=== PATIENT | female | born 1935 | race Caucasian/White ===

== ENCOUNTER 2017-04-15 16:34 | Emergency (ER) | payer MEDICARE, MEDICAID ==
[~2017-04-15] VITALS: Ht 167.6 cm; Wt 72.6 kg
--- NOTE | 2017-04-15 16:34 | NUR ---
Patient BIBA to bed 11 at this time.
[2017-04-15 16:38] VITALS: BP 190/98
[2017-04-15] MEDS ORDERED: ONDANSETRON 4 MG/2 ML VIAL IVP ONE (16:45)
[2017-04-15] MEDS ORDERED: NACL 0.9% 1,000 ML IV ONE (16:45)
[2017-04-15] MEDS ORDERED: MORPHINE SULFATE 4 MG/ML SYR IVP ONE (16:45)
--- NOTE | 2017-04-15 16:55 | NUR ---
81F BIBA WITH C/O 02/19 "SHARP" NON RADIATING CONSTANT RIGHT HIP PAIN S/P MECHANICAL FALL FROM 2 STEP LADDER; PT STS SHE WAS STEPPING DOWN AND MISS A STEP AND FALL UNTO RIGHT HIP; PT DENIES ANY LOC OR VOMITTING S/P FALL; SHORTENING AND ROTATION NOTED TO RIGHT LEG; CMS INTACT TO BL LEGS; PT IS AOX4, RR ARE EVEN AND UNLABORED; PT DENIES ANY SOB OR CP; ER MD AWARE OF PT STATUS; NAD; AWAITING LAB/RADIOLOGY RESULTS. WILL CONTINUE TO MONITOR.
--- NOTE | 2017-04-15 17:07 | NUR ---
XRAY BY BEDSIDE
[2017-04-15 17:30] LABS: BASOPHILS # (AUTO) 0.2 K/uL (0.00-0.22); BASOPHILS % (AUTO) 1.4 % (0.0-2.0); EOSINOPHILS # (AUTO) 0.1 K/uL (0-0.4); EOSINOPHILS % (AUTO) 0.6 % (0.0-4.0); HEMATOCRIT 42.2 % (36-48); HEMOGLOBIN 13.6 g/dL (12.0-16.0); LYMPHOCYTES # (AUTO) 0.9 K/uL (2.5-16.5); LYMPHOCYTES % (AUTO) 8.1 % (20.5-51.1); MEAN CORPUSCULAR HEMOGLOBIN 32 pg (27-31); MEAN CORPUSCULAR HGB CONC 32 g/dL (33-37); MEAN CORPUSCULAR VOLUME 98 fL (80-94); MONOCYTES # (AUTO) 0.4 K/uL (0.8-1.0); MONOCYTES % (AUTO) 3.8 % (1.7-9.3); NEUTROPHILS # (AUTO) 9.9 K/uL (1.8-7.7); NEUTROPHILS % (AUTO) 86.1 % (42.2-75.2); PLATELET COUNT (AUTO) 196 K/uL (140-450); RED CELL DISTRIBUTION WIDTH 13.5 % (11.6-13.7); WHITE BLOOD COUNT (AUTO) 11.5 K/uL (4.8-10.8)
[2017-04-15] MEDS ORDERED: KETOROLAC 30 MG/ML VIAL IVP ONE (17:30)
[2017-04-15 17:47] LABS: PROTHROMBIN TIME 10.4 secs (10.8-13.4)
[2017-04-15 18:00] LABS: ANION GAP 13.4 (8-16); CARBON DIOXIDE 27.6 mmol/L (21-32); CHLORIDE 104 mmol/L (98-107); GLUCOSE 105 mg/dL (74-106); SODIUM SERUM 141 mmol/L (136-145); UREA NITROGEN, BLOOD 15 mg/dL (7-18)
[2017-04-15 18:07] LABS: ASPARTATE AMINOTRANSFERASE 25 U/L (15-37); TOTAL BILIRUBIN 0.6 mg/dL (0.0-1.0)
[2017-04-15 19:16] LABS: APPEARANCE,URINE CLEAR (CLEAR); BILIRUBIN,URINE NEGATIVE (NEGATIVE); BLOOD, URINE TRACE-I (NEGATIVE); COLOR,URINE STRAW (YELLOW); LEUKOCYTE ESTERASE ,URINE NEGATIVE (NEGATIVE); NITRITE, URINE NEGATIVE (NEGATIVE); UGLUCOSE NEGATIVE (NEGATIVE)
--- NOTE | 2017-04-15 19:23 | NUR ---
Pt report given to Milla KIRKLAND. Transfer of care at this time.
[2017-04-15 19:26] LABS: RBC,URINE 0-5 (RARE) /HPF (0-5); WBC,URINE 0-5 (RARE) /HPF (0-5)
--- NOTE | 2017-04-15 20:00 | NUR ---
Patient to be transferred to [facility]. Is being transferred due to HIGHER LEVEL OF CARE. Receiving facility has accepting physician and available space. ER physician has signed transfer form. Patient or responsible constitution party has agreed to transfer and signed form. Patient belongings inventoried and will be sent with patient. Copy of nursing notes, lab reports, EKG, Physicians Orders and X-rays to be sent with patient. Report called to BERT at receiving facility. [facility] ambulance service has been called for transfer. ETA is 15.
[2017-04-15 20:22] VITALS: BP 166/84
== END 2017-04-15 20:00 | disposition short-term general hospital (02) ==
LOC: MED 16:34
DX: S72.011A Unspecified intracapsular fracture of right femur, initial encounter for closed fracture (principal); I10 Essential (primary) hypertension; W18.39XA Other fall on same level, initial encounter; Y93.89 Activity, other specified; Y92.89 Other specified places as the place of occurrence of the external cause; Y99.8 Other external cause status
CPT/HCPCS: 36415; 71010; 72170; 73502; 80053; 81001; 82550; 84484; 85025; 85610; 85730; 93005; 96361; 96374; 96375; 99285; J1885; J2270; J2405; J7030